=== PATIENT | female | born 2000 | race Caucasian/White ===

== ENCOUNTER 2020-07-23 19:16 | Emergency (ER) | payer OTHER, SELFPAY ==
[2020-07-23 19:52] VITALS: BP 136/81; PULSE 134; RESP 18; TEMP 38.3; O2SAT 100; BMI 38.5
--- NOTE | 2020-07-23 19:56 | PC.NURSE ---
PRESENTS WITH SORE THROAT X 1 DAY, TONSILS APPEAR INFLAMED. APPEARS WELL, RESP EVEN AND NONLABOURED. DENIES DIZZINESS, ANY OTHER SXS. NO KNOWN RECENT EXPOSURE TO COVID. FEBRILE, SLIGHTLY TACHY. PA AWARE. ABLE TO TOLERATE PO FLUIDS.
[2020-07-23] MEDS: predniSONE 20 MG TABLET 60 MG PO (20:03)
[2020-07-23] MEDS: Ibuprofen 600 MG TABLET PO (20:03)
[2020-07-23] MEDS: Penicillin V Potassium 250 MG TABLET 500 MG PO (20:24)
--- NOTE | 2020-07-23 20:30 | ED.GENADULT ---
HPI - General Adult General Chief complaint: Dental/Oral Stated complaint: SWOLLEN TONSILS Time Seen by Provider: 07/23/20 19:53 History of Present Illness HPI narrative: Patient complains of sore throat and fever for 2 days, she is able to drink and swallow but it is painful, no difficulty breathing, no cough or shortness of breath Related Data Previous Rx's Medication Instructions Recorded ibuprofen 600 mg PO Q6H PRN #20 tab 07/23/20 penicillin V potassium 500 mg PO Q12H 10 Days #20 tab 07/23/20 Allergies Allergy/AdvReac Type Severity Reaction Status Date / Time No Known Allergies Allergy Verified 07/23/20 19:56 [No Known Allergies*] Review of Systems Review of Systems: Positive for sore throat and fever Negatives there is no dizziness no weakness no confusion no headache no neck pain no chest pain no shortness of breath no abdominal pain no nausea vomiting, no urinary symptoms, no calf pain or leg swelling, no rash Yes all other systems are reviewed and are negative [facility] Past Medical History Attestation statement: The following information was validated with the patient. [facility] Narrative: No relevant medical history Medical History (Updated 07/24/20 @ 00:00 by Background Daemon) H/O tonsillitis Social History Social History Advance Directives: No Advance Directives Information Provided: Yes Physical Exam Vital Signs: Vital Signs: Last Vital Signs Temp 101.0 F H 07/23/20 19:52 Pulse 134 H 07/23/20 19:52 Resp 18 07/23/20 19:52 BP 136/81 07/23/20 19:52 Pulse Ox 100 07/23/20 19:52 Body Mass Index 38.5 General appearance no acute distress, comfortable and cooperative, in no signs 3 The eyes are clear with no discharge no redness The pharynx had bilateral swollen red tonsils with exudate, uvula was midline, no drooling, voice was normal The neck was supple with anterior cervical lymphadenopathy The chest was clear to auscultation bilaterally with full symmetric equal breath sounds The heart rate and rhythm regular, no murmurs The abdomen was soft nontender Extrude a med he has no calf tenderness or swelling no edema skin no rashes Course Course Course Narrative: Patient with a pulse of 130 initially and a temperature of 101 degrees who was comfortable relaxed tolerating p.o. and with no complaint except sore throat was given Motrin and asked to drink a L of water, she drank the water easily she took a Motrin and a repeat check of her pulse the pulse was 100 and patient tolerated the fluids with no problem and remains comfortable cheerful and with no complaints except pain in her throat when she swallows so for this reason sepsis is doubted as there is a well-appearing patient was pulse rate improved dramatically with Motrin for fever reduction and p.o. fluids for improvement of mild dehydration Discharge Plan Discharge Clinical Impression: Pharyngitis Patient Disposition: Home, Self-Care Additional Instructions: We are treating for presumed strep throat, but we also tested for COVID We will call with COVID results within 1-3 days You can also get Tylenol [id number] to supplement the Motrin for your fever and sore throat Drink plenty of fluids We gave 1 dose of prednisone which often reduces throat inflammation when you have 3 strep throat Return any time for difficulty breathing or worsening difficulty swallowing or dehydration or any worse condition or any concerns Prescriptions: New penicillin V potassium 500 mg tablet 500 mg PO Q12H 10 Days Qty: 20 RF: 0 ibuprofen 600 mg tablet 600 mg PO Q6H PRN (Reason: fever or pain) Qty: 20 RF: 0 Stand Alone Forms: Work/School Release Interventions: ED Discharge Assessment Last Done: 07/23/20 20:47 Discharge Date/Time: 07/23/20 20:49
== END 2020-07-23 20:49 | disposition home or self-care (01) ==
PROVIDERS: Physician Assistant Medical; Emergency Provider Emergency Medicine; PCP Internal Medicine
DX: J02.9 Acute pharyngitis, unspecified (principal); Z20.828 Contact with and (suspected) exposure to other viral communicable diseases; R50.9 Fever, unspecified
CPT/HCPCS: 99283; U0003

== ENCOUNTER 2020-09-11 15:18 | Outpatient (REF) | payer OTHER, SELFPAY ==
[2020-09-14 00:16] LABS: C. trachomatis RNA TMA NOT DETECTED (NOT DETECTED); N. gonorrhoeae RNA TMA NOT DETECTED (NOT DETECTED)
== END 2020-09-11 15:19 | disposition home or self-care (01) ==
LOC: HO.LAB 15:18
PROVIDERS: PCP Internal Medicine; Visit Provider Obstetrics & Gynecology
DX: N92.6 Irregular menstruation, unspecified (principal)
CPT/HCPCS: 36415; 87491; 87591; 88142; 99202

== ENCOUNTER 2020-09-12 17:00 | Outpatient (REF) | payer OTHER, SELFPAY ==
[2020-09-12 17:44] LABS: MANUAL DIFF FLAG NO
[2020-09-12 17:46] LABS: Basophils Absolute Auto 0.1 X10*3/uL (0.0-0.2); Basophils Percent Auto 0.5 % (0-2); Eosinophils Absolute Auto 0.5 X10*3/uL (0.0-0.4); Eosinophils Percent Auto 4.6 % (0-4); Hematocrit 37.9 % (37-47); Hemoglobin 11.8 g/dl (12.0-16.0); Imm Gran Abs Auto 0.03 X10*3/uL (0.00-0.03); Imm Gran Pct Auto 0.3 % (0.0-0.4); Lymphocytes Absolute Auto 3.1 X10*3/uL (1.2-4.9); Lymphocytes Percent Auto 28.4 % (20-40); Mean Corpuscular HGB Conc 31.1 g/dl (31.0-35.0); Mean Corpuscular Hemoglobin 24.1 pg (27.0-33.0); Mean Corpuscular Volume 77.3 fL (80-98); Mean Platelet Volume 9.7 fL (9.4-12.3); Monocytes Absolute Auto 0.6 X10*3/uL (0.1-1.2); Monocytes Percent Auto 5.9 % (2-11); Neutrophils Absolute Auto 6.5 X10*3/uL (2.0-8.3); Neutrophils Percent Auto 60.3 % (45-73); Platelet Count 448 X10*3/uL (160-400); Red Cell Distribution Width 16.5 % (11.0-16.0); White Blood Count 10.8 X10*3/uL (4.8-10.8)
[2020-09-12 18:33] LABS: TSH reflex Free T4 2.21 uIU/mL (0.32-4.0)
== END 2020-09-12 17:01 | disposition home or self-care (01) ==
LOC: HO.LAB 17:00
PROVIDERS: PCP Internal Medicine; Visit Provider Obstetrics & Gynecology
DX: N92.6 Irregular menstruation, unspecified (principal); N93.9 Abnormal uterine and vaginal bleeding, unspecified
CPT/HCPCS: 36415; 84443; 85025; 87491

== ENCOUNTER → 2020-09-25 11:41 | Outpatient (BNVA) | payer OTHER, SELFPAY | PROVIDERS: PCP Internal Medicine; Visit Provider Obstetrics & Gynecology ==

== ENCOUNTER → 2020-10-29 11:33 | Outpatient (BNVA) | payer OTHER, SELFPAY | PROVIDERS: PCP Internal Medicine; Visit Provider Obstetrics & Gynecology ==

== ENCOUNTER → 2020-12-26 10:39 | Outpatient (BNVA) | payer OTHER, SELFPAY | PROVIDERS: PCP Internal Medicine; Visit Provider Obstetrics & Gynecology ==

== ENCOUNTER 2021-02-22 16:32 | Outpatient (REF) | payer OTHER, SELFPAY ==
[2021-02-22 16:57] LABS: MANUAL DIFF FLAG NO
[2021-02-22 17:00] LABS: Basophils Percent Auto 0.4 % (0-2); Eosinophils Absolute Auto 0.5 X10*3/uL (0.0-0.4); Eosinophils Percent Auto 5.8 % (0-4); Hematocrit 35.3 % (37-47); Hemoglobin 10.8 g/dl (12.0-16.0); Imm Gran Abs Auto 0.04 X10*3/uL (0.00-0.03); Imm Gran Pct Auto 0.4 % (0.0-0.4); Lymphocytes Absolute Auto 2.2 X10*3/uL (1.2-4.9); Lymphocytes Percent Auto 23.9 % (20-40); Mean Corpuscular HGB Conc 30.6 g/dl (31.0-35.0); Mean Corpuscular Hemoglobin 23.5 pg (27.0-33.0); Mean Corpuscular Volume 76.9 fL (80-98); Monocytes Absolute Auto 0.6 X10*3/uL (0.1-1.2); Monocytes Percent Auto 6.5 % (2-11); Neutrophils Absolute Auto 5.8 X10*3/uL (2.0-8.3); Platelet Count 468 X10*3/uL (160-400); Red Blood Count 4.59 X10*6/uL (4.20-5.50); Red Cell Distribution Width 15.8 % (11.0-16.0); White Blood Count 9.3 X10*3/uL (4.8-10.8)
[2021-02-22 17:23] LABS: Glucose Urine UA NEG (NEG); Leukocyte Esterase Urine NEG (NEG); Nitrite Urine NEG (NEG); Specific Gravity - Urine >= 1.030 (1.005-1.025); UACC Culture Trigger NO; Urine Blood 2+ (NEG); Urine Ketones NEG (NEG); Urine Protein NEG (NEG-TRACE)
[2021-02-22 17:25] LABS: Appearance Urine CLEAR; Color Urine YELLOW
[2021-02-22 17:38] LABS: Bacteria Urine TRACE /LPF; Mucus Urine 1+ /LPF; Squamous Epithelial Cell Urine 1+ /LPF; WBC Urine 0-2 /HPF (0-4)
[2021-02-22 17:50] LABS: Alanine Aminotransferase 15 U/L (0-31); Albumin Level 4.2 g/dL (3.5-5.0); Alkaline Phosphatase 73 U/L (39-117); Anion Gap 15 (12-20); Aspartate Amino Transferase 22 U/L (5-31); Bilirubin Total 0.2 mg/dL (0.0-1.0); Blood Urea Nitrogen 12 mg/dL (9-16); Calcium 9.3 mg/dL (8.4-10.2); Carbon Dioxide 23 mmol/L (22-29); Chloride 110 mmol/L (96-108); Cholesterol 191 mg/dL; Estimated Glomerular Filt Rate > 60; Glucose Random 81 mg/dL (60-115); Potassium 4.5 mmol/L (3.3-5.1); Sodium 143 mmol/L (135-145); Total Protein 7.2 g/dL (6.5-8.0)
[2021-02-22 18:09] LABS: TSH reflex Free T4 2.07 uIU/mL (0.32-4.0)
== END 2021-02-22 16:33 | disposition home or self-care (01) ==
LOC: HO.LAB 16:32
PROVIDERS: PCP Internal Medicine; Visit Provider Internal Medicine
DX: Z00.00 Encounter for general adult medical examination without abnormal findings (principal); E66.9 Obesity, unspecified
CPT/HCPCS: 36415; 80053; 81001; 82465; 84443; 85025

== ENCOUNTER 2021-03-15 11:55 | Outpatient (REF) | payer OTHER, SELFPAY | END 2021-03-15 11:56 | disposition home or self-care (01) | LOC: HO.LAB 11:55 | PROVIDERS: PCP Internal Medicine; Visit Provider Internal Medicine | DX: Z20.822 Contact with and (suspected) exposure to COVID-19 (principal) | CPT/HCPCS: C9803; U0003; U0005 ==

== ENCOUNTER 2021-03-19 09:49 | Outpatient (REF) | payer OTHER, SELFPAY | END 2021-03-19 09:50 | disposition home or self-care (01) | LOC: HO.LAB 09:49 | PROVIDERS: PCP Internal Medicine; Visit Provider Internal Medicine | DX: Z20.822 Contact with and (suspected) exposure to COVID-19 (principal) | CPT/HCPCS: C9803; U0003; U0005 ==

== ENCOUNTER 2021-04-08 05:58 | Emergency (ER) | payer OTHER, SELFPAY ==
--- NOTE | ~2021-04-08 | XR_ITS ---
EXAMINATION: XR KNEE, LEFT CLINICAL INFORMATION: Persistent medial knee pain for 2 weeks since trauma. COMPARISON: None TECHNIQUE: 5 views of the left knee. FINDINGS: There is no fracture, dislocation, or destructive process. No definite effusion. Hoffa's fat pad appears normal. There is no joint narrowing or erosive change. No chondrocalcinosis. XR/XR knee LT 3V IMPRESSION: Unremarkable left knee.
[2021-04-08 06:26] VITALS: BP 127/70; PULSE 81; RESP 16; TEMP 36.4; O2SAT 99; BMI 38.7
--- NOTE | 2021-04-08 10:01 | ED_ITS ---
HPI - Extremity Injury (Lower) General Chief Complaint: Extremity Injury, Lower Stated Complaint: left knee pain Time Seen by Provider: 04/08/21 09:28 Source: patient Mode of arrival: ambulatory Limitations: no limitations History of Present Illness HPI Narrative: 21-year-old female presents with atraumatic left knee pain for 2 weeks. The pain started in her left thigh, now she has pain in her medial left knee. 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 Patient reports Motrin helps with the pain, but then when she stops taking Motrin pain returns. MD complaint: knee injury Onset (ago): week(s) (2) Other symptoms: none Treatments prior to arrival: cold therapy and NSAIDS Related Data Previous Rx's Medication Instructions Recorded naproxen 500 mg tablet 500 mg PO BID 10 Days #20 tab 04/08/21 Allergies Allergy/AdvReac Type Severity Reaction Status Date / Time No Known Allergies Allergy Verified 04/02/21 11:31 [No Known Allergies*] Review of Systems Review of Systems: Constitutional : No Weight loss, No Fever, No Chills, No Night Sweats,No Fatigue, No Malaise ENT/Mouth : No Hearing loss, No Ear Pain, No Nasal Congestion, NoSinus Pain, No Hoarseness, No sore throat, No Rhinorrhea, NoSwallowing Difficulty Eyes: No Eye Pain, No Swelling, No Redness, No Foreign Body, NoDischarge, No Vision Changes Cardiovascular : No Chest Pain, No SOB, No Dyspnea on Exertion, NoOrthopnea, No Edema, No Palpitations Respiratory : No Cough, No Sputum, No Wheezing, No Smoke Exposure, No Dyspnea Gastrointestinal : No Nausea, No Vomiting, No Diarrhea, NoConstipation, No abdominal Pain, No Hematochezia, No Melena Genitourinary : no irregular bleeding, No Dysuria, No UrinaryFrequency, No Hematuria, No Urinary Incontinence, No Urgency, No FlankPain, No Urinary Flow Changes, No Hesitancy Musculoskeletal : left knee pain, no swelling Skin : No Skin Lesions, No rash Neuro : No Weakness, No Numbness, No Paresthesias, No Loss ofConsciousness, No Dizziness, No Headache Yes all other systems are reviewed and are negative PMFSH Past Medical History Medical History Allergic rhinitis H/O tonsillitis Irregular menstrual cycle Obesity (BMI 30-39.9) Surgical History No significant past surgical history Family History Family History Maternal Grandmother Diabetes mellitus Mother No problems noted. Father No problems noted. Social History Social History Housing: Apartment Alcohol intake: never Patient Tobacco Use Status: Never used Tobacco Second Hand Smoke Exposure: Yes Advance Directives: No Advance Directives Information Provided: Yes Patient : No service: No Current occupational status: employed Current occupation: [employer] Gender identity: Female Physical Exam 2 Vital Signs: Vital Signs: Last Vital Signs Temp 97.5 F 04/08/21 06:26 Pulse 81 04/08/21 06:26 Resp 16 04/08/21 06:26 BP 127/70 04/08/21 06:26 Pulse Ox 99 04/08/21 06:26 Body Mass Index 38.7 Appearance: Alert. Oriented X3. No acute distress. Head: Normal external exam. Normocephalic. Atraumatic. ?No Ferraro signs noted. No raccoon eyes noted Eyes: PERRLA. EOMI. Conjunctiva and sclera normal. Eyelids normal. Neck: Normal inspection. Neck supple. FROM. CVS: Normal heart rate and rhythm. Heart sound normal. Pulses normal throughout. ?No murmurs/rales/gallops. Respiratory: No respiratory distress. Painless inspiration. Breath sounds normal. No wheezes/rales/rhonchi noted. Chest nontender. ??No accessory muscle usage noted or decreased air movement noted. Back: ?No CVA tenderness. ?Full range of motion noted. ?No rashes/lesion/induration/fluctuance or signs of infection noted. Skin: Skin warm and dry. ?Normal skin color. ?Normal skin turgor. No rashes/lesions/lacerations noted. Extremities: Mildly ataxic gait, left knee tender along medial joint line, full active range of motion of left knee, no lower extremity edema. ? Neuro: Oriented X 3. ?No motor deficit. ?No sensory deficit. ?Reflexes normal. ?No focal neuro deficits noted. Vascular:+ 2 distal pedal pulses/+2 dorsalis pedis b/l. ?Normal cap refill. ?No cyanosis noted to lower extremity toes nails. Course Course Course Narrative: 21-year-old female with repetitive use injury to left knee. Obtaining x-ray, gave Nicholerin. Reevaluation(s) Reevaluation #1: XR shows:There is no fracture, dislocation, or destructive pr ocess. No definite effusion. Hoffa's fat pad appears normal. There is no joint narrowing or erosive change. No chondrocalcinosis.? Counseled patient to take naproxen, use her knee brace, rest, ice, elevate, follow up primary care provider for referral to physical therapy Discharge Plan Discharge Clinical Impression: Repetitive use syndrome Patient Disposition: Home, Self-Care Instructions: R.I.C.E. Treatment (ED) Additional Instructions: Call your primary care provider. They may want to send you to physical therapy to strengthen the muscles above and below your knee. Please take naproxen for 10 days as we discussed. I have sent this to your pharmacy. Please rest, ice, elevate, and use your knee brace. Please return to emergency room if you have any new or concerning symptoms Prescriptions: New naproxen 500 mg tablet 500 mg PO BID 10 Days Qty: 20 RF: 0
[2021-04-08] MEDS: Ibuprofen 800 MG TABLET PO (11:01)
--- NOTE | 2021-04-08 11:04 | PC.NURSE ---
PT AMBULATORY INTO RESULTS PENDING. WEARING BRACE FROM HOME. GAIT STEADY. EVALUATED BY JUAN BENNETT. PT AWARE AND AGREEABLE TO PROVIDER RECOMMENDATIONS. +CMS. STATES NO QUESTIONS. MEDICATED PRIOR TO DC HOME
== END 2021-04-08 11:10 | disposition home or self-care (01) ==
PROVIDERS: Emergency Provider Emergency Medicine
DX: S89.92XA Unspecified injury of left lower leg, initial encounter (principal); M25.562 Pain in left knee; X50.3XXA Overexertion from repetitive movements, initial encounter; Y93.9 Activity, unspecified; Y92.9 Unspecified place or not applicable; Y99.9 Unspecified external cause status; Z79.899 Other long term (current) drug therapy
CPT/HCPCS: 73562; 99283

== ENCOUNTER → 2021-04-09 11:38 | Outpatient (BNVA) | payer OTHER, SELFPAY | PROVIDERS: PCP Internal Medicine; Visit Provider Advanced Practice Midwife ==

== ENCOUNTER 2021-05-14 15:00 | Outpatient (RCR) | payer OTHER, SELFPAY ==
--- NOTE | 2021-04-23 15:42 | MHC.PT.EP ---
[facility] [place] [facility] [place] [facility] [place] Office [address] Marvel Tellez [address] [phone] F: [phone] F: [phone] F: [phone] F: [phone] Physical Therapy Plan of Care Date of Evaluation: Date of Surgery: Diagnosis: L knee pain Assessment: 21 y/o F referred to PT with L knee pain. Currently reports pain and difficulty with stairs, standing and squatting. Examination shows decreased L LE strength, decreased hip AROM, decreased HS length, poor functional squat and impaired gait pattern. Recommend PT 2x/week for 5 weeks to address impairments, implement HEP, and optimize functional mobility. Frequency and Duration: The patient will be seen 2x/week for 5 week Short Term Goals: 3 weeks 1. I with HEP 2. 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 I with HEP and self management of sx 2. Pt will be able to perform functional squat with proper mechanics and pain < 3/10 3. Pt will be able to ascend/descend stairs in step through pattern with pain < 3/10 Treatment Plan: Modalities to reduce pain, spasms and effusion. Manual therapy to restore motion and function. Therapeutic exercise to improve strength and flexibility. Neuromuscular re-education for posture and balance. Therapeutic activities to return to functional activities of daily living. Electronically signed by: Christina Manriquez PT Please sign and return to therapist. Thank you for your referral.
--- NOTE | 2021-06-18 11:52 | MHC.PT.DC ---
[facility] [place] Office [place] Office [place] Office [address] Marvel Tellez [address] [facility] [phone] F: [phone] F: [phone] F: [phone] F: [phone] Physical Therapy Discharge Report Diagnosis: L knee pain Date of Surgery: Date of Evaluation: 04/23/21 Date of Discharge: 06/18/21 Treatments to Date: 3 Cancellations to Date: 2 No Shows to Date: 1 Discharge Status: Visit Non-compliance Discharge Summary: D/c secondary to noncompliance with scheduling policy. Electronically signed by: Ector Manriquez PT Please sign and return to therapist. Thank you for your referral.
== END 2021-06-18 11:52 | disposition home or self-care (01) ==
LOC: HO.PT 15:00
PROVIDERS: PCP Internal Medicine; Visit Provider Internal Medicine
DX: M25.562 Pain in left knee (principal)
CPT/HCPCS: 97110; 97161

== ENCOUNTER 2021-05-27 10:39 | Outpatient (REF) | payer OTHER, SELFPAY | END 2021-05-27 10:40 | disposition home or self-care (01) | LOC: HO.LAB 10:39 | PROVIDERS: PCP Internal Medicine; Visit Provider Internal Medicine | DX: Z20.822 Contact with and (suspected) exposure to COVID-19 (principal) | CPT/HCPCS: C9803; U0003; U0005 ==

== ENCOUNTER 2021-08-25 21:26 | Emergency (ER) | payer OTHER, SELFPAY ==
[2021-08-25 21:37] VITALS: BP 132/75; PULSE 70; RESP 18; TEMP 36.5; O2SAT 99; BMI 37.8
--- NOTE | 2021-08-25 22:02 | ED_ITS ---
HPI - General Adult General Chief complaint: General Medical Stated complaint: Vaginal Bleeding Time Seen by Provider: 08/25/21 22:02 Source: patient Mode of arrival: ambulatory Limitations: no limitations History of Present Illness HPI narrative: Patient is a 21 year old female presenting to the emergency department today with rectal pain and rectal bleeding. Patient states that after she went to the restroom today, she wiped and saw bright red blood and is now having some rectal pain. Patient denies any dizziness, lightheadedness, abdominal pain, vaginal bleeding, vaginal discharge, nausea, vomiting, fever, chills, blurry vision, double vision, loss of vision, chest pain, difficulty breathing, shortness of breath, back pain, night sweats, pain with urination, increased urinary frequency, increased urinary urgency, syncope or a near syncopal episode, recent trauma or falls, bowel incontinence, bladder incontinence, bowel retention, bladder retention, or any other complaints at this time. Onset (ago): hour(s) Location: buttocks Severity scale (1-10): 3 Quality: aching Pain Consistency: intermittent Relieving factors: none Exacerbating factors: none Associated symptoms: denies other symptoms Related Data Previous Rx's Medication Instructions Recorded naproxen 500 mg tablet 500 mg PO BID 10 Days #20 tab 04/08/21 triamcinolone acetonide 0.025 % 1 appl TOPICAL BID #15 g 05/14/21 topical cream clobetasol 0.05 % shampoo (Clodan) 1 appl TOPICAL BEDTIME 28 Days 05/27/21 #118 ml Allergies Allergy/AdvReac Type Severity Reaction Status Date / Time No Known Allergies Allergy Verified 08/25/21 21:37 [No Known Allergies*] Review of Systems Verdana 4l Constitutional: Verdana 4d Verdana 4d Constitutional: Verdana 4d Reports no additional constitutional complaints, Denies chills, Denies fever(s) and Denies night sweats Verdana 4l Eyes: Verdana 4d Verdana 4d Eyes: Verdana 4d Reports no additional eye complaints, Denies blurry vision, Denies change in vision, Denies diplopia, Denies eye discharge, Denies loss of vision and Denies eye pain Verdana 4l ENT: Verdana 4d Denies dizziness Verdana 4l Cardiovascular: Verdana 4d Verdana 4d Cardiovascular: Verdana 4d Reports no additional cardiovascular complaints, Denies chest pain, Denies lightheadedness, Denies Loss of Consciousness and Denies dyspnea Verdana 4l Respiratory: Verdana 4d Verdana 4d Respiratory: Verdana 4d Reports no additional respiratory complaints and Denies dyspnea Verdana 4l Gastrointestinal: Verdana 4d Verdana 4d Gastrointestinal: Verdana 4d Reports no additional gastrointestinal complaints, Denies abdominal pain, Denies melena, Denies hematochezia, Denies change in bowel habits and Denies change in stool character Verdana 4d Comments: VerdanaVerdana 4d Rectal bleeding, rectal pain Genitourinary: Genitourinary: Denies hematuria, Denies urinary frequency, Denies dysuria, Denies urinary incontinence, Denies urinary hesitancy and Denies urinary urgency Musculoskeletal: Musculoskeletal: Reports no additional musculoskeletal complaints, Denies numbness and Denies tingling Neurologic: Denies dizziness, Denies loss of vision, Denies numbness and Denies tingling Psychiatric: Psychiatric: Reports no additional psychiatric complaints Endocrine: Endocrine: Reports no additional endocrine complaints Hematologic/Lymphatic: Hematologic/Lymphatic: Reports no additional hematologic/lymphatic complaints Allergic/Immunologic: Allergic/Immunologic: Reports no additional allergic/immunologic complaints PMFSH Past Medical History Attestation statement: The following information was validated with the patient. Medical History Allergic rhinitis H/O tonsillitis Irregular menstrual cycle Obesity (BMI 30-39.9) Surgical History No significant past surgical history Family History Family History Maternal Grandmother Diabetes mellitus Mother No problems noted. Father No problems noted. Social History Social History Housing: Apartment Alcohol intake: never Patient Tobacco Use Status: Never used Tobacco Second Hand Smoke Exposure: Yes Advance Directives: No Advance Directives Information Provided: Yes Patient : No service: No Current occupational status: employed Current occupation: [employer] Gender identity: Female Physical Exam Verdana 4l Vital Signs: Verdana 4d Verdana 4d Vital Signs: Verdana 4d Verdana 4Bd Last Vital Signs Verdana 4d Generation Technologist New 4d Generation Technologist New 4d Temp 97.7 F 08/25/21 21:37 Generation Technologist New 4d Pulse 70 08/25/21 21:37 Generation Technologist New 4d Resp 18 08/25/21 21:37 BP 132/75 08/25/21 21:37 Pulse Ox 99 08/25/21 21:37 BMI result Body Mass Index 37.8 Const: General: cooperative, no acute distress, alert and awake Nutritional Appearance: well nourished Orientation/consciousness: patient oriented x3 Limitations: no limitations HENMT: Head: Yes normal to inspection and Yes atraumatic Ears: hearing grossly normal bilaterally and external ears normal General nose exam: Normal exte rnal nose present, no nasal discharge noted and no epistaxis Face and sinus: Yes normal facial exam, No abrasion and No laceration Mouth: Normal oral and palatal mucosa present, no drooling and no muffled voice Eyes: General: appearance normal, both eyes and all related structures Periorbital: periorbital findings normal Eyelids: Yes eyelids normal Conjunctivae: conjunctivae normal Pupils: Equal, round and reactive pupils present EOM: EOMs intact bilaterally Neck: Neck: Yes normal visual inspection, Yes full ROM and Yes no lymphadenopathy Chest: Chest palpation & inspection: normal inspection of the chest Resp: Effort & Inspection: normal respiratory effort and able to speak in complete sentences GI: Inspection: Yes normal to inspection Rectal Exam - Female: External hemorrhoid(s) present Neuro: General: patient oriented x3 and moves all extremities Cranial nerves: Yes Equal, round and reactive pupils present Cognition (Neuro): normal cognition Motor exam (neuro): 5/5 motor strength present throughout Sensory Exam: Normal double simultaneous stimulation for sensation Coordination: [id number] test normal Extrem: General: Yes normal to inspection, Yes full ROM and Yes capillary refill normal Psych: Appearance: grossly normal Mental Status: mental status grossly normal Affect: normal affect Attitude: cooperative Thought process: Normal thought process present Thought content: Normal thought content present Insight: Good insight present (Psych) Medical Decision Making MDM Narrative Medical decision making narrative: Patient is a 21 year old female presenting to the emergency department today with rectal bleeding and rectal pain. Patient's physical exam showed an external hemorroid but was otherwise unremarkable. I explained my physical exam findings to the patient. I answered all questions asked by the patient. I explained, in depth, the pathophysiology and OTC treatment of an external hemorroid to the patient. I stressed the importance of the patient following up with her primary care provider. I stressed the importance of the patient returning to the emergency department immediately if her symptoms were to worsen or if she were to develop any dizziness, shortness of breath, difficulty breathing, chest pain, blurry vision, loss of vision, nausea, vomiting, abdominal pain, fever, chills, back pain, or any other complaints. Patient verbalized agreement and understanding with this treatment plan and discharge. Differential Diagnosis Differential Diagnosis: Hemorrhoid, rectal injury, medical examination Medical Records Medical records reviewed: Yes I reviewed the patient's medical records. Discharge Plan Discharge Clinical Impression: Hemorrhoid Patient Disposition: Home, Self-Care Instructions: Hemorrhoids (ED), Hemorrhoids (DC) Prescriptions: No Action clobetasol [Clodan] 0.05 % shampoo 1 appl topical BEDTIME 28 Days Qty: 118 0RF naproxen 500 mg tablet 500 mg PO BID 10 Days Qty: 20 0RF triamcinolone acetonide 0.025 % cream 1 appl topical BID Qty: 15 0RF Print Language: Arabic
--- NOTE | 2021-08-25 22:16 | PC.NURSE ---
EXAM PERFORMED WITH RN WITNESS BY SABRINA HAWKINS.
== END 2021-08-25 22:32 | disposition home or self-care (01) ==
PROVIDERS: Emergency Provider Internal Medicine; PCP Internal Medicine
DX: K64.9 Unspecified hemorrhoids (principal); Z79.899 Other long term (current) drug therapy
CPT/HCPCS: 99283

== ENCOUNTER 2022-06-27 09:51 | Outpatient (REF) | payer OTHER, SELFPAY ==
[2022-06-27 10:10] LABS: MANUAL DIFF FLAG NO
[2022-06-27 10:28] LABS: Basophils Absolute Auto 0.1 X10*3/uL (0.0-0.2); Basophils Percent Auto 0.5 % (0-2); Eosinophils Absolute Auto 0.3 X10*3/uL (0.0-0.4); Eosinophils Percent Auto 2.9 % (0-4); Hematocrit 41.8 % (37.0-47.0); Hemoglobin 13.1 g/dl (12.0-16.0); Imm Gran Abs Auto 0.06 X10*3/uL (0.00-0.03); Imm Gran Pct Auto 0.6 % (0.0-0.4); Lymphocytes Absolute Auto 2.3 X10*3/uL (1.2-4.9); Lymphocytes Percent Auto 24.4 % (20-40); Mean Corpuscular HGB Conc 31.3 g/dl (31.0-35.0); Mean Corpuscular Hemoglobin 25.2 pg (27.0-33.0); Mean Corpuscular Volume 80.5 fL (80.0-98.0); Mean Platelet Volume 9.8 fL (9.4-12.3); Monocytes Absolute Auto 0.7 X10*3/uL (0.1-1.2); Monocytes Percent Auto 7.1 % (2-11); Neutrophils Percent Auto 64.5 % (45-73); Platelet Count 432 X10*3/uL (160-400); Red Blood Count 5.19 X10*6/uL (4.20-5.50); Red Cell Distribution Width 15.3 % (11.0-16.0); White Blood Count 9.4 X10*3/uL (4.8-10.8)
[2022-06-27 12:46] LABS: Alanine Aminotransferase 10 U/L (0-31); Albumin Level 4.3 g/dL (3.5-5.0); Alkaline Phosphatase 81 U/L (39-117); Aspartate Amino Transferase 13 U/L (5-31); Bilirubin Total 0.5 mg/dL (0.0-1.0); Blood Urea Nitrogen 10 mg/dL (9-16); Calcium 9.6 mg/dL (8.4-10.2); Estimated Glomerular Filt Rate > 60; Glucose Random 94 mg/dL (60-115)
[2022-06-27 14:26] LABS: Anion Gap 11 (12-20); Carbon Dioxide 26 mmol/L (22-29); Chloride 102 mmol/L (96-108); Potassium 4.4 mmol/L (3.3-5.1); Sodium 135 mmol/L (135-145)
== END 2022-06-27 09:52 | disposition home or self-care (01) ==
LOC: HO.LAB 09:51
PROVIDERS: PCP Internal Medicine; Visit Provider Nurse Practitioner Family
DX: Z00.00 Encounter for general adult medical examination without abnormal findings (principal)
CPT/HCPCS: 36415; 80053; 82306; 84443; 85025

== ENCOUNTER 2022-07-15 14:16 | Outpatient (REF) | payer OTHER, SELFPAY ==
[2022-07-15 15:15] LABS: Influenza A PCR POSITIVE (Negative); Influenza B PCR NEGATIVE (Negative); Resp Syncy Virus RNA Qual PCR NEGATIVE (Negative); SARS COV2 PCR INHOUSE NEGATIVE (Negative)
== END 2022-07-15 14:17 | disposition home or self-care (01) ==
LOC: HO.LNP 14:16
PROVIDERS: Visit Provider Physician Assistant
DX: Z20.822 Contact with and (suspected) exposure to COVID-19 (principal); B34.9 Viral infection, unspecified
CPT/HCPCS: 0241U

== ENCOUNTER 2022-09-03 11:54 | Outpatient (REF) | payer OTHER, SELFPAY ==
--- NOTE | ~2022-09-03 | XR_ITS ---
EXAMINATION: XR chest 2V CLINICAL INFORMATION: Reason for Exam Z01.818 - Encounter for other preprocedural examination COMPARISON: None TECHNIQUE: 2 views of the chest FINDINGS: Clear lungs. No pneumothorax or pleural effusion. Normal cardiomediastinal silhouette. XR/XR chest 2V IMPRESSION: * Clear lungs.
--- NOTE | 2022-09-03 11:58 | ECG_ITS ---
Test Reason : pre-op Blood Pressure : / mmHG Vent. Rate : 068 BPM Atrial Rate : 068 BPM P-R Int : 150 ms QRS Dur : 084 ms QT Int : 378 ms P-R-T Axes : 056 049 021 degrees QTc Int : 401 ms Normal sinus rhythm Normal ECG No previous ECGs available Referred By: Norberto Landeros Electronically Signed By:JR MATHEWS MD
[2022-09-03 12:23] LABS: MANUAL DIFF FLAG NO
[2022-09-03 13:21] LABS: Basophils Absolute Auto 0.1 X10*3/uL (0.0-0.2); Basophils Percent Auto 0.5 % (0-2); Eosinophils Absolute Auto 0.3 X10*3/uL (0.0-0.4); Eosinophils Percent Auto 2.7 % (0-4); Hematocrit 40.4 % (37.0-47.0); Hemoglobin 12.9 g/dl (12.0-16.0); Imm Gran Abs Auto 0.04 X10*3/uL (0.00-0.03); Imm Gran Pct Auto 0.4 % (0.0-0.4); Lymphocytes Percent Auto 22.2 % (20-40); Mean Corpuscular HGB Conc 31.9 g/dl (31.0-35.0); Mean Corpuscular Hemoglobin 25.7 pg (27.0-33.0); Mean Corpuscular Volume 80.6 fL (80.0-98.0); Mean Platelet Volume 9.8 fL (9.4-12.3); Monocytes Absolute Auto 0.6 X10*3/uL (0.1-1.2); Neutrophils Absolute Auto 6.3 x10*3/uL (2.0-8.3); Neutrophils Percent Auto 68.2 % (45-73); Platelet Count 388 X10*3/uL (160-400); Red Blood Count 5.01 X10*6/uL (4.20-5.50); White Blood Count 9.2 X10*3/uL (4.8-10.8)
[2022-09-03 13:25] LABS: INTERNATIONAL NORM RATIO 1.1 (0.9-1.1); Prothrombin Time 13.2 SEC (10.0-13.1)
[2022-09-03 13:28] LABS: Estimated Average Glucose 105 mg/dL; Hemoglobin A1c % 5.3 %
[2022-09-03 14:03] LABS: Alanine Aminotransferase 19 U/L (0-31); Albumin Level 4.2 g/dL (3.5-5.0); Alkaline Phosphatase 79 U/L (39-117); Anion Gap 13 (12-20); Aspartate Amino Transferase 17 U/L (5-31); Bilirubin Total 0.5 mg/dL (0.0-1.0); Blood Urea Nitrogen 9 mg/dL (9-16); Calcium 9.2 mg/dL (8.4-10.2); Carbon Dioxide 25 mmol/L (22-29); Chloride 105 mmol/L (96-108); Estimated Glomerular Filt Rate > 60; Glucose Random 85 mg/dL (60-115); Potassium 4.4 mmol/L (3.3-5.1); Sodium 139 mmol/L (135-145)
[2022-09-03 14:28] LABS: Free T4 (Free Thyroxine) 0.85 ng/dL (0.71-1.85); HCG Quantitative < 2 mIU/mL; Thyroid Stimulating Hormone 2.32 uIU/mL (0.32-4.0)
[2022-09-04 04:54] LABS: Triiodothyronine T3 Total 153 ng/dL (76-181)
[2022-09-04 11:40] LABS: HIV AB/AG Nonreactive (Nonreactive); HIV Num 1 0.07 S/CO (0.00-0.99)
== END 2022-09-03 11:55 | disposition home or self-care (01) ==
LOC: HO.LAB 11:54
PROVIDERS: PCP Internal Medicine; Visit Provider Internal Medicine
DX: Z01.818 Encounter for other preprocedural examination (principal); Z11.4 Encounter for screening for human immunodeficiency virus [HIV]; E66.9 Obesity, unspecified; N92.6 Irregular menstruation, unspecified; E03.9 Hypothyroidism, unspecified; R79.89 Other specified abnormal findings of blood chemistry; E11.9 Type 2 diabetes mellitus without complications; I10 Essential (primary) hypertension
CPT/HCPCS: 36415; 71046; 80053; 83036; 84439; 84443; 84480; 84702; 85025; 85610; 85730; 87389; 93005

== ENCOUNTER 2022-10-07 14:35 | Outpatient (REF) | payer OTHER, SELFPAY ==
[2022-10-07 15:42] LABS: Influenza A PCR NEGATIVE (Negative); Influenza B PCR NEGATIVE (Negative); Resp Syncy Virus RNA Qual PCR NEGATIVE (Negative); SARS COV2 PCR INHOUSE NEGATIVE (Negative)
== END 2022-10-07 14:36 | disposition home or self-care (01) ==
LOC: HO.LAB 14:35
PROVIDERS: PCP Internal Medicine; Visit Provider Internal Medicine
DX: J98.8 Other specified respiratory disorders (principal); Z20.822 Contact with and (suspected) exposure to COVID-19
CPT/HCPCS: 0241U

== ENCOUNTER 2023-06-23 12:23 | Outpatient (AMB) | payer OTHER, SELFPAY ==
[2023-06-23 12:33] VITALS: BP 118/78; PULSE 90; O2SAT 98; BMI 36.5
--- NOTE | 2023-06-23 12:33 | MHC.PC.OV ---
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 Required: No Accompanied by: Self / Same As Patient Allergies No Known Allergies [No Known Allergies*] Allergy (Verified 06/23/23 13:00) Medication List - Last Reconciled 06/23/23 by Norberto Landeros MD cholecalciferol (vitamin D3) 50 mcg PO DAILY Tobacco use date assessed: 06/23/23 Dental Screening Dental Screen Date: 06/23/23 Did you have a dental visit in the last 12 months?: Yes Did you have a dental problem in the last 6 months where you did not have access to dental care?: No Was dental information given to patient?: Patient has dentist HPI physical HPI Details Patient comes in today for her annual physical examination States that she feels okay but reports that she is concerned about her getting throat/tonsil infections often - states that she seems to have a bout with sore throat at least 3 to 4 times a year and is considering having her tonsils taken out Recalls that she had frequent throat infections when she was growing up States that she recently had another episode of sore throat but it is now easing up and she has not needed to take any Abx lately She denies any headaches or dizziness; denies any fever or ear pain Denies any chest pains, no SOB No nausea/vomiting, no abdominal pain No change in bowel habits noted Denies any acute urinary symptoms Relates that she did get her liposuction and fat transfer as scheduled back in September 2022 in [place], [place] and that her surgery went well with no problems REPLACED BY [facility] Medical History (Updated 06/23/23 @ 13:39 by Norberto Landeros MD) Vitamin D deficiency Obesity (BMI 30-39.9) Irregular menstrual cycle Allergic rhinitis H/O tonsillitis Surgical History (Updated 06/23/23 @ 13:52 by Norberto Landeros MD) Hx of abdominal surgery (~10/14/22) Family History Maternal Grandmother Diabetes mellitus Mother No problems noted. Father No problems noted. Social History Housing: Apartment Alcohol intake: never Patient Tobacco Use Status: Never used Tobacco Second Hand Smoke Exposure: Yes service: No Current occupational status: employed Current occupation: [employer] Gender identity: Female Cognitive needs: No Hearing needs: No Vision needs: No Questionnaire PHQ-9 Over the last 2 weeks, how often have you been bothered by any of the following problems? 1. Little interest or pleasure in doing things: not at all 2. Feeling down, depressed, or hopeless: not at all 3. Trouble falling or staying asleep, or sleeping too much: not at all 4. Feeling tired or having little energy: not at all 5. Poor appetite or overeating: not at all 6. Feeling bad about yourself - or that you are a failure or have let yourself or your family down: not at all 7. Trouble concentrating on things, such as reading the newspaper or watching television: not at all 8. Moving or speaking so slowly that other people could have noticed. Or the opposite - being so fidgety or restless that you have been moving around a lot more than usual: not at all 9. Thoughts that you would be better off or of hurting yourself in some way: not at all Total score: 0 Depression Screening Interpretation: Negative Depression Screening Done: Yes 59841 - PHQ-9 Billing: Yes Source: Developed by Drs. Chapo Jane, Laura Cummins, Salty Silverio and colleagues, with an educational saroj from [employer]. Thrive Questionnaire Date Thrive assessed: 06/23/23 I am a: Patient What is your living situation today?: I have a steady place to live Within the past 12 months, did the food you bought not last and you didn't have the money to get more?: Never true Within the past 12 months, did you worry whether your food would run out before you got money to buy more?: Never true Do you have trouble paying for medicines?: No Do you have trouble getting transportation to medical appointments?: No Do you have trouble paying your heating and electricity bill?: No Do you have trouble taking care of your child, family member or friend?: No Do you have trouble with day-to-day activities such as bathing, preparing meals, shopping, managing finances, etc.?: No Are you currently unemployed and looking for a job?: No Are you interested in more education?: No Please select the resources that you would like help with: None Currently or been in a relationship where the following occur: no concerns reported AUDIT C Alcohol Use Questionnaire (AUDIT-C) 1. How often do you have a drink containing alcohol?: Never 3. How often do you have six or more drinks on one occasion?: Never Total Score: 0 Score Reviewed/Action Taken: Yes AUGUSTINA-7 AMB Questionnaire AUGUSTINA-7 Date AUGUSTINA - 7 assessed: 06/23/23 Feeling nervous, anxious, or on edge: 0 = Not at all Not being able to stop or control worryin = Not at all Worrying too much about different things: 0 = Not at all Trouble relaxin = Not at all Being so restless that it is hard to sit still: 0 = Not at all Becoming easily annoyed or irritable: 0 = Not at all Feeling afraid as if something awful might happen: 0 = Not at all Total AUGUSTINA-7 score (0-4 normal; 5-9 mild; 10-14 moderate; 15-21 severe): 0 Source: Developed by Drs. Chapo Jane, Laura Cummins, Salty Silverio and colleagues, with an educational saroj from [employer]. AUGUSTINA-7 Assessment Billing AUGUSTINA-7 Assessment Tool: AUGUSTINA-7 Assessment 81201 Review of Systems Const Denies chills, Denies fatigue, Denies fever(s), Denies headache(s) and Denies malaise Eyes Denies blurry vision, Denies change in vision, Denies irritation and Denies itchy eyes ENT Denies dysphagia, Denies dizziness, Denies otalgia, Denies headache(s), Denies nasal congestion, Denies neck pain, Denies odynophagia, Denies sinus pain and Reports sore throat (mild) Card Denies chest pain, Denies rapid heart rate, Denies irregular heart rhythm, Denies palpitations and Denies dyspnea Resp Denies chest congestion, Denies cough, Denies dyspnea and Denies wheezing GI Denies abdominal pain, Denies bloating, Denies constipation, Denies dysphagia, Denies heartburn, Denies diarrhea, Denies nausea, Denies odynophagia and Denies vomiting Denies hematuria, Denies urinary frequency, Denies dysuria, Denies urinary incontinence and Denies urinary urgency Musc Denies back pain, Denies arthralgias, Denies joint swelling, Denies muscle weakness and Denies neck pain Skin/Breast Denies breast pain, Denies breast mass, Denies change in pigmentation, Denies lesions, Denies rash and Denies unusual bruising Neuro Denies dizziness, Denies headache(s) and Denies paresthesias Psych Denies anxiety and Denies depression Endo Denies fatigue and Denies palpitations Jeff/Lymph Denies easy bruising Aller/Immun Denies itchy eyes and Denies wheezing Physical exam (Primary Care) Vital Signs: Last Vital Signs Pulse 90 06/23/23 12:33 BP 118/78 06/23/23 12:33 Pulse Ox 98 06/23/23 12:33 Oxygen Delivery Method Room Air 06/23/23 12:33 BMI result Body Mass Index 36.5 Tobacco/Smoking Status: Tobacco use Status Tobacco use date assessed 06/23/23 06/23/23 12:39 Patient Tobacco Use Status Never used Tobacco 06/23/23 12:39 PHQ-9: PHQ-9 Score PHQ-9: Total score 0 06/23/23 12:39 Depression Screening Interpretation: Negative Thrive Assessment: Date of Thrive Assessment Date Thrive assessed 06/23/23 06/23/23 12:39 Currently or been in a relationship where the following occur: no concerns reported Const General: no acute distress, alert and awake Orientation/consciousness: patient oriented x3 [facility] Head: Yes normocephalic and Yes atraumatic Ears: external ears normal, TM's normal bilaterally and EAC's normal General nose exam: No nasal discharge present Face and sinus: Yes normal facial exam and Yes sinuses nontender Teeth and gingiva: dentition normal Throat: Yes posterior oropharynx normal and Yes abnormal tonsil ((+) mild bilateral TP congestion) Eyes Eyelids: Yes eyelids normal Conjunctivae: conjunctivae normal Pupils: Equal, round and reactive pupils present EOM: EOMs intact bilaterally Neck Neck: Yes no lymphadenopathy and Yes supple Thyroid: Thyroid normal Resp Auscultation: clear to auscultation bilaterally, no rales and no wheezes Cardio Rate: regular rate Rhythm: regular rhythm Heart sounds: no murmurs GI Palpation (GI): Soft to palpation, nontender and No hepatosplenomegaly present Auscultation: normal bowel sounds General: Yes no CVA tenderness Back/Spine/Pelvis Back: no CVA tenderness Thoracic/Lumbar Spine: thoracic and lumbar spine normal to inspection Skin Lesions: no lesions Rashes: no rashes Neuro General: patient oriented x3, moves all extremities, no focal motor deficits and CN's II-XI intact bilaterally Cranial nerves: Yes Equal, round and reactive pupils present Cognition (Neuro): normal cognition Gait exam (Neuro): Normal gait present Extrem General: Yes no clubbing, cyanosis or edema Assessment and Plan Assessment & Plan (1) Annual physical exam: Code(s): Z00.00 - Encounter for general adult medical examination without abnormal findings Plan: Check labs 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 Saldaña back in 08/2020 (2) Vitamin D deficiency: Code(s): E55.9 - Vitamin D deficiency, unspecified Plan: Continue Vitamin D3 2000 units QD Will recheck her Vitamin D level for follow up (3) Recurrent tonsillitis: Code(s): J03.91 - Acute recurrent tonsillitis, unspecified Plan: Will refer her to ENT for further evaluation and management Patient is advised that whether a tonsillectomy is indicated / recommended or not will be up to the decision of ENT (4) Obesity (BMI 30-39.9): Code(s): E66.9 - Obesity, unspecified Plan: Reinforced diet/exercise as tolerated/lose weight (5) Cervical cancer screening: Code(s): Z12.4 - Encounter for screening for malignant neoplasm of cervix Plan: [facility] and gynecology exam - these were last done with Dr. Saldaña back in August 2020 Plan Follow up in 6 months Orders: Orders Complete Blood Count Auto Diff Today J03.91 - Acute recurrent tonsillitis, unspecified, Z00.00 - Encounter for general adult medical examination without abnormal findings Cholesterol Today Z00.00 - Encounter for general adult medical examination without abnormal findings Vitamin D 25-OH Total Today E55.9 - Vitamin D deficiency, unspecified, Z00. - Encounter for general adult medical examination without abnormal findings Comprehensive Met. 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
== END 2023-06-23 13:12 | disposition home or self-care (01) ==
PROVIDERS: PCP Internal Medicine; Visit Provider Internal Medicine
DX: Z00.00 Encounter for general adult medical examination without abnormal findings (principal); E55.9 Vitamin D deficiency, unspecified; E66.9 Obesity, unspecified; Z68.36 Body mass index [BMI] 36.0-36.9, adult; J03.91 Acute recurrent tonsillitis, unspecified
CPT/HCPCS: 99395

== ENCOUNTER 2023-08-11 11:40 | Outpatient (REF) | payer OTHER, SELFPAY ==
[2023-08-12 11:19] LABS: CT PCR NOT DETECTED (Not Detect.); NG PCR NOT DETECTED (Not Detect.)
[2023-08-12 13:23] LABS: BV Int Neg Control Negative (Negative); BV Int Pos Control Positive (Positive)
== END 2023-08-11 11:41 | disposition home or self-care (01) ==
LOC: HO.LNP 11:40
PROVIDERS: PCP Internal Medicine; Visit Provider Advanced Practice Midwife
DX: Z12.4 Encounter for screening for malignant neoplasm of cervix (principal); Z11.3 Encounter for screening for infections with a predominantly sexual mode of transmission; N92.6 Irregular menstruation, unspecified
CPT/HCPCS: 0353U; 87480; 87510; 87660; 88142; 99395

== ENCOUNTER 2023-08-11 11:40 | Outpatient (AMB) | payer OTHER, SELFPAY ==
[2023-08-11 11:42] VITALS: BP 114/68; BMI 37.2
--- NOTE | 2023-08-11 11:42 | A.OFFVIS_ITS ---
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 She has no systems mgr concerns at all she is working on trying to eat healthier and walk her dog more and go to the gym sometimes so that she can gradually lose weight she has been losing weight and she feels much better than when she was much heavier she also reports regular menses now that she has lost some weight. She also feels better in that between the weight loss and being off control she is happier. She uses condoms consistently 100% and she says her partner's very good about using them to I asked her what she would do if 1 broke and she was pretty clear that she would get Plan B she is also tracking her cycle with an donn and also is aware of symptoms of ovulation that tracks with when the appt tells her she should be ovulating so she is educating herself about that as well. What she described to me was consistent with ovulatory symptoms. 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 She does not know if she ever got the Gardasil vaccine when she was young living in [place] but she is going to ask her mom and get a copy of her immunizations for herself. She has been with her same partner for 8 years and has no worries about STIs but is okay with getting testing with her Pap smear today she does not feel she needs blood work for HIV etc.. She had talked with her primary care provider about frequent colds and throat infections and tonsillitis and she has an upcoming appointment with ENT in October but she has been healthy recently. She never has caught COVID though she did not get the COVID vaccine. She does mask however. [facility] Medical History (Updated 08/11/23 @ 12:16 by Beth Roca CNM) Vitamin D deficiency Obesity (BMI 30-39.9) Irregular menstrual cycle Allergic rhinitis H/O tonsillitis Surgical History Hx of abdominal surgery (~10/14/22) Family History Maternal Grandmother Diabetes mellitus Mother No problems noted. Father No problems noted. Social History Housing: Apartment Alcohol intake: never Patient Tobacco Use Status: Never used Tobacco Second Hand Smoke Exposure: Yes service: No Current occupational status: employed Current occupation: [employer] Gender identity: Female Cognitive needs: No Hearing needs: No Vision needs: No Female Reproductive History Menstrual Age of Menarche: 7 Duration of menses: 6-7 days Date of last menstrual period: 07/29/23 control method: none Total pregnancies: 0 Date of last pap smear: 09/13/20 (negative) History of abnormal pap smear: No Physical Exam Vital Signs: Last Vital Signs BP 114/68 08/11/23 11:42 BMI result Body Mass Index 37.2 Const General: healthy appearing, comfortable, no acute distress, well developed and alert Nutritional Appearance: average body habitus Orientation/consciousness: patient oriented x3 Limitations: no limitations HEENT Head: Yes normocephalic Neck Neck: Yes normal visual inspection Thyroid: Thyroid normal Chest Chest palpation & inspection: normal inspection of the chest Breast/axilla inspection: normal inspection of the breasts and normal inspection of the axillae Breast/axilla palpation: normal palpation of the breasts and normal palpation of the axillae Resp Effort & Inspection: normal respiratory effort GI Inspection: Yes normal to inspection, No Abdominal wall edema and No distended Palpation (GI): Soft to palpation and nontender Other: Speculum exam within normal limits vagina pink and moist cervix is pink smooth healthy appearing nulliparous mobile nontender uterus midposition nontender not enlarged adnexa not enlarged nontender good tone with Kegel. General: Yes bladder normal to palpation External Female Exam: normal external appearance and normal appearance of the urethra Speculum Exam - Vagina: normal appearance of the vagina, normal palpation and normal vaginal discharge Speculum Exam - Cervix: normal appearance of the cervix, normal palpation and nontender Bimanual exam- vagina & uterus: normal bimanual exam, normal palpation, uterine size normal, bladder normal to palpation, consistency normal, normal palpation, uterine mobility normal, uterine shape normal, No Cervical tenderness present, non-tender and no cervical motion tenderness Bimanual Exam- Adnexa, other: normal adnexae, no masses, normal and No adnexal tenderness Neuro General: patient oriented x3 Assessment & Plan Assessment & Plan (1) Cervical cancer screening: Comment: Previous Pap negative in 2020; Pap done 08/11/2023. Patient will check as to whether not she receive the Gardasil vaccine. Code(s): Z12.4 - Encounter for screening for malignant neoplasm of cervix (2) Obesity (BMI 30-39.9): Code(s): E66.9 - Obesity, unspecified (3) Well woman exam with routine gynecological exam: Code(s): Z01.419 - Encounter for gynecological examination (general) (routine) without abnormal findings (4) Encounter for screening examination for sexually transmitted disease: Code(s): Z11.3 - Encounter for screening for infections with a predominantly sexual mode of transmission (5) Irregular menstrual cycle: Comment: Reports regular cycles since she lost weight and is keeping track. Code(s): N92.6 - Irregular menstruation, unspecified (6) control counseling: Comment: Discussed in some detail including future family planning. Code(s): Z30.09 - Encounter for other general counseling and advice on contraception Plan See HPI for some issues that we are discussed. -----Discussed in this visit the following: healthy balanced diet, regular and consistent exercise, getting recommended health screens, doing the best she can for her particular health concerns, kegel exercises, pap smear screening and followup recommendations, mammography screening and SBE, normal changes in cycles in her life stage--- . Reviewed her history with control and happiness with using condoms consistent early. Reviewed her regular menstrual cycles which have become very regular since she lost weight encouraged continued efforts in that direction and discussed all the benefits that can accrue for her in terms of health overall as well as potentially for any future she may be considering in the future. Also discussed that we do not have a birthing center at [facility] anymore and that for first-time she would better be served by meeting with a group of providers that could be with her in provide consistent care from the beginning in through delivery discussed that we do not have the ability currently anymore but [place] does. She is happy currently with condoms with backup plan of plan B if she did she need it and self awareness of when she is ovulating. Pap smear was done as well as testing for gonorrhea chlamydia trich Gardnerella and Yeimi she declined HIV testing or any of the other serologic test with blood work. Orders: Orders Pap Smear Today Z12.4 - Encounter for screening for malignant neoplasm of cervix Bacterial Vaginosis Panel Today Z11.3 - Encounter for screening for infections with a predominantly sexual mode of transmission CT NG by PCR Today Z11.3 - Encounter for screening for infections with a predominantly sexual mode of transmission Coding Level of Care Code Est Pt Prev Care 18-39y([id number]) Diagnoses Cervical cancer screening Z12.4 Obesity (BMI 30-39.9) E66.9 Well woman exam with routine gynecological exam Z01.419 Encounter for screening examination for sexually transmitted disease Z11.3 Irregular menstrual cycle N92.6 control counseling Z30.09
== END 2023-08-11 15:18 | disposition home or self-care (01) ==
LOC: HO.HWSM 11:40
PROVIDERS: PCP Internal Medicine; Visit Provider Advanced Practice Midwife
DX: Z01.419 Encounter for gynecological examination (general) (routine) without abnormal findings (principal); N92.6 Irregular menstruation, unspecified; E66.9 Obesity, unspecified; Z30.09 Encounter for other general counseling and advice on contraception
CPT/HCPCS: 99395

== ENCOUNTER 2025-01-30 17:38 | Emergency (ER) | payer OTHER, SELFPAY ==
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
[2025-01-30 17:46] VITALS: BP 124/92; PULSE 110; O2SAT 98
[2025-01-30 18:04] VITALS: BP 134/83; PULSE 90; RESP 16; TEMP 36.6; O2SAT 99; BMI 36.2
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
[2025-01-30 19:49] VITALS: BP 134/83; PULSE 90; RESP 16; TEMP 36.6; O2SAT 99
== END 2025-01-30 19:50 | disposition home or self-care (01) ==
PROVIDERS: Emergency Provider Emergency Medicine
DX: S09.90XA Unspecified injury of head, initial encounter (principal); R42 Dizziness and giddiness; R51.9 Headache, unspecified; V43.52XA Car driver injured in collision with other type car in traffic accident, initial encounter; R11.0 Nausea; Y93.9 Activity, unspecified; Y92.410 Unspecified street and highway as the place of occurrence of the external cause; Y99.8 Other external cause status
CPT/HCPCS: 70450; 99282; 99284

== ENCOUNTER → 2025-01-30 18:08 | Outpatient (BNV) | payer SELFPAY | PROVIDERS: Emergency Provider Emergency Medicine; Visit Provider Student in an Organized Health Care Education/Training Program | DX: R51.9 Headache, unspecified (principal); R42 Dizziness and giddiness; R11.0 Nausea; V89.2XXA Person injured in unspecified motor-vehicle accident, traffic, initial encounter | CPT/HCPCS: 70450 ==